=== PATIENT | male | born 1995 | race Caucasian/White ===

== ENCOUNTER 2023-03-24 15:35 | Emergency (ER) | payer MEDICARE, MEDICAID ==
[~2023-03-24] VITALS: Ht 177 cm; Wt 92.0 kg
--- NOTE | 2023-03-24 15:41 | ED Upper Extremity ---
General Stated Complaint: RT THUMB LAC History of Present Illness Date Seen by Provider: Mar 24, 2023 Time Seen by Provider: 15:41 Initial Comments 28-year-old male is here with complaints of a right thumb laceration which occurred when he was opening a box with his pocket knife today. Moderate bleeding present. Patient is able to move his thumb without any issues. Denies sensory loss. Allergies and Home Medications Patient Home Medication List Home Medication List Reviewed: Yes Review of Systems Constitutional: no symptoms reported Skin: other (Laceration) Physical Exam Vital Signs Vital Signs - First Documented 03/24/23 15:46 Pulse 70 Resp 16 B/P (MAP) 140/90 (107) Pulse Ox 100 O2 Delivery Room Air Capillary Refill : Height, Weight, BMI Height: '" Weight: lbs. oz. kg; BMI Method: General Appearance: WD/WN, no apparent distress HEENT: PERRL/EOMI Neck: non-tender, full range of motion Hand: non-tender, normal ROM, Right, laceration (Right thumb shows a stellate laceration on the medial side with moderate bleeding. No foreign body. N/V bundle intact. ROM unrestricted.) Neurologic/Tendon: normal sensation, normal motor functions, normal tendon functions Neurologic/Psychiatric: no motor/sensory deficits, alert, oriented x 3 Progress/Results/Core Measures Results/Orders My Orders Orders - VIOLETTE TAYLOR MD Lidocaine 1% Inj 10 Ml (Xylocaine 1% Inj (03/24/23 15:52) Vital Signs/I&O 03/24/23 15:46 Pulse 70 Resp 16 B/P (MAP) 140/90 (107) Pulse Ox 100 O2 Delivery Room Air Progress Progress Note : Progress Note RIGHT THUMB LACERATION: -1 Steri-Strip and Dermabond used -Wound care instructions given -Tetanus up-to-date (had 1 in 2018) Departure Impression Primary Impression: Laceration of right thumb without complication Qualified Codes: S61.011A - Laceration without foreign body of right thumb without damage to nail, initial encounter Disposition: 01 HOME, SELF-CARE Condition: Stable Departure-Patient Inst. Referrals: NO,LOCAL PHYSICIAN (PCP/Family) Primary Care Physician Patient Instructions: Laceration Repair With Glue ED Add. Discharge Instructions: -Wound care instructions given VIOLETTE TAYLOR MD Mar 24, 2023 15:41
[2023-03-24 15:46] VITALS: BP 140/90
[2023-03-24] MEDS ORDERED: LIDOCAINE 1% INJ 10 ML VIAL ONE (15:52)
== END 2023-03-24 16:20 | disposition home or self-care (01) ==
LOC: ER FS 15:37
DX: S61.011A Laceration without foreign body of right thumb without damage to nail, initial encounter (principal); W26.0XXA Contact with knife, initial encounter
CPT/HCPCS: 12041